=== PATIENT | female | born 1950 | race Caucasian/White ===

== ENCOUNTER → 2017-02-16 | Outpatient (CLI) | payer MEDICARE, OTHER ==
[~2017-02-16] MED LIST: FOLI0.4T2 PO; METH2.5T6 PO; [UNRECOGNIZED DRUG - CODE] PO
[2017-02-16 08:50] LABS: BASOPHILS % (AUTO) 0.5 % (0-2); EOSINOPHILS # (AUTO) 0.1 T/MM3 (0-0.5); EOSINOPHILS % (AUTO) 1.8 % (0-4); HCT - HEMATOCRIT 41.6 % (36-46); HGB - HEMOGLOBIN 13.7 GM/DL (12-16); LYMPHOCYTES # (AUTO) 1.1 T/MM3 (1-4.8); LYMPHOCYTES % (AUTO) 27.2 % (23-45); MEAN CORPUSCULAR HGB 32.6 UUG (26-34); MEAN CORPUSCULAR HGB CONC(MCHC 32.9 GM/DL (31-37); MEAN PLATELET VOLUME 9.3 UM3 (9.4-12.4); MONOCYTES # (AUTO) 0.6 T/MM3 (0-0.8); NEUTROPHILS #(AUTO)-ABSOLUTE 2.1 T/MM3 (1.8-7.7); NEUTROPHILS % (AUTO) 55.5 % (33-66); WBC - WHITE BLOOD COUNT 3.9 T/MM3 (4.5-11.0)
[2017-02-16 09:07] LABS: ALBUMIN 4.2 G/DL (3.5-5.0); ALBUMIN/GLOBULIN RATIO 1.2 RATIO (1.1-2.2); ALKALINE PHOSPHATASE 150 U/L (38-126); ALT (SGPT) 69 U/L (9-52); ANION GAP 13 MEQ/L (5-15); AST (SGOT) 61 U/L (14-36); BUN/CREATININE RATIO 20 RATIO (6-26); CHLORIDE 104 MEQ/L (98-107); CO2 - CARBON DIOXIDE 29 MEQ/L (22-30); CREATININE 1.2 MG/DL (0.7-1.2); GLOMERULAR FILTRATION RATE 45; GLUCOSE 104 MG/DL (65-110); PHOSPHORUS 3.8 MG/DL (2.5-4.5); POTASSIUM 4.5 MEQ/L (3.6-5); SODIUM 146 MEQ/L (134-144); TOTAL PROTEIN 7.6 G/DL (6.3-8.2)
== END ==
LOC: LAB 08:25
PROVIDERS: ATTEND Internal Medicine Critical Care Medicine
DX: Z79.891 Long term (current) use of opiate analgesic (principal)
CPT/HCPCS: 36415; 80069; 85025

== ENCOUNTER → 2017-03-01 | Outpatient (CLI) | payer MEDICARE, OTHER ==
[2017-03-01 18:05] LABS: ALBUMIN 4.6 G/DL (3.5-5.0); ALBUMIN/GLOBULIN RATIO 1.4 RATIO (1.1-2.2); ALKALINE PHOSPHATASE 161 U/L (38-126); ALT (SGPT) 73 U/L (9-52); ANION GAP 11 MEQ/L (5-15); AST (SGOT) 61 U/L (14-36); BUN/CREATININE RATIO 17 RATIO (6-26); C-REACTIVE PROTEIN < 5.0 MG/L (0-9); CALCIUM 9.8 MG/DL (8.4-10.2); CHLORIDE 107 MEQ/L (98-107); CO2 - CARBON DIOXIDE 28 MEQ/L (22-30); CREATININE 1.4 MG/DL (0.7-1.2); GLOMERULAR FILTRATION RATE 38; GLUCOSE 101 MG/DL (65-110); POTASSIUM 4.8 MEQ/L (3.6-5); SODIUM 146 MEQ/L (134-144)
[2017-03-01 18:14] LABS: BASOPHILS % (AUTO) 0.7 % (0-2); EOSINOPHILS # (AUTO) 0.1 T/MM3 (0-0.5); EOSINOPHILS % (AUTO) 2.4 % (0-4); HCT - HEMATOCRIT 40.5 % (36-46); HGB - HEMOGLOBIN 13.9 GM/DL (12-16); LYMPHOCYTES # (AUTO) 1.1 T/MM3 (1-4.8); LYMPHOCYTES % (AUTO) 25.1 % (23-45); MEAN CORPUSCULAR HGB 33.1 UUG (26-34); MEAN CORPUSCULAR HGB CONC(MCHC 34.3 GM/DL (31-37); MEAN CORPUSCULAR VOLUME 96.4 UM3 (80-100); MEAN PLATELET VOLUME 9.8 UM3 (9.4-12.4); MONOCYTES # (AUTO) 0.6 T/MM3 (0-0.8); MONOCYTES % (AUTO) 12.4 % (0-9.0); NEUTROPHILS #(AUTO)-ABSOLUTE 2.7 T/MM3 (1.8-7.7); NEUTROPHILS % (AUTO) 59.4 % (33-66); WBC - WHITE BLOOD COUNT 4.5 T/MM3 (4.5-11.0)
== END ==
LOC: LAB 17:21
PROVIDERS: ATTEND Internal Medicine
DX: D48.5 Neoplasm of uncertain behavior of skin (principal); D86.0 Sarcoidosis of lung; R59.9 Enlarged lymph nodes, unspecified
CPT/HCPCS: 36415; 80053; 82164; 85025; 85652; 86140